=== PATIENT | male | born 1980 | race Two or more races ===

== ENCOUNTER 2024-12-06 10:37 | Emergency (ER) | payer OTHER ==
[~2024-12-06] VITALS: Ht 170.2 cm; Wt 79.5 kg
[2024-12-06 10:37] VITALS: TEMP 98.9
[2024-12-06] MEDS: LIDOCAINE 1% 10 ML VIAL SQ ONE (12:37)
[2024-12-06] MEDS ORDERED: DOXY-354 PO (13:02)
[2024-12-06 13:17] VITALS: BP 122/75; PULSE 85; RESP 16; O2SAT 99
== END 2024-12-06 13:18 | disposition home or self-care (01) ==
LOC: EMS 10:38
DX: L02.411 Cutaneous abscess of right axilla (principal); L73.2 Hidradenitis suppurativa; Z90.49 Acquired absence of other specified parts of digestive tract
CPT/HCPCS: 99283; 10060; J3490